=== PATIENT | female | born 1990 | race Caucasian/White ===

== ENCOUNTER 2018-12-25 16:44 | Emergency (ER) | payer BC ==
[2018-12-25 17:41] LABS: #Basophils 0.1 thou/uL (0.0-0.2); #Eosinphils 0.2 thou/uL (0.0-0.7); #Lymphocytes 1.9 thou/uL (1.20-3.40); #Monocytes 0.4 thou/uL (0.11-0.59); #Neutrophils 3.6 thou/uL (1.40-6.50); %Basophils 1.1 % (0.0-1.0); %Eosinophils 2.5 % (0.0-10.0); %Lymphocytes 30.2 % (21.0-51.0); %Monocytes 7.2 % (0.0-10.0); Hemoglobin 13.8 g/dL (12.0-16.0); Mean Corpuscular HGB CONC 35.3 g/dL (32.0-36.0); Mean Corpuscular Hemoglobin 30.3 pg (27.0-31.0); Mean Corpuscular Volume 85.9 fL (78.0-98.0); Mean Platelet Volume 8.3 fL (7.4-10.4); Platelet Count 171 thou/uL (130-400); RBC Distribution Width 11.7 % (11.5-14.5); Red Blood Cell (RBC) Count 4.57 mill/uL (4.20-5.40); White Blood Cell (WBC) Count 6.2 thou/uL (4.8-10.8)
[2018-12-25 18:49] LABS: Bilirubin Negative (Negative); Blood, Urine Negative (Negative); Clarity Clear (Clear); Glucose, Urine (Dipstick) Normal (Negative); Leukocyte Negative Leu/uL (Negative); Nitrite Negative (Negative); Protein, Urine (Dipstick) Negative (Neg-Trace); Urobilinogen Normal mg/dL (Less than 2)
--- NOTE | 2018-12-25 19:51 | ULT ---
OB ULTRASOUND: History: Vaginal bleeding. FINDINGS: This shows an irregularly shaped intrauterine gestational sac and a pole. The crown to rump dinora gth measurements are 5.8 cm corresponding to 12 weeks 2 days. No motion or heart activity is se en. The right and left adnexa are normal in size. DOPPLER EVALUATION WITH SPECTRAL ANALYSIS: Normal flow is shown to the right ovary. Left ovary flow cannot be determined. This is probably just related to its position. IMPRESSION: Findings compatible with demise. POS: [facility]
== END 2018-12-25 19:35 | disposition home or self-care (01) ==
LOC: ERS 16:44
DX: O03.4 Incomplete spontaneous abortion without complication (principal)
CPT/HCPCS: 36415; 76856; 81003; 84702; 85025; 86900; 86901

== ENCOUNTER 2018-12-26 06:05 | Inpatient (IN) | payer BC ==
[2018-12-26] MEDS ORDERED: Misoprostol 200 MCG TAB ONE ×2 (06:43→07:16)
[2018-12-26] MEDS ORDERED: hydrALAZINE 20 MG/ML VIAL SLOW IVP PRN (06:52)
--- NOTE | 2018-12-26 06:52 | PDOC.EVN ---
Event Note - Event Note Event Note: In Room at 0645 (now) OBGYN [facility] Patient of Dr Marks patient S/P passing 16 week AB at home, placenta in situ Patient passed fetus at about 0430 IV being placed now Initial exam with no active bleeding, cant tell if placenta insitu yet Awaiting speculum...will get sono
[2018-12-26] MEDS ORDERED: Lactated Ringer's 1,000 ML IV SCH (07:00)
--- NOTE | 2018-12-26 07:02 | PDOC.EVN ---
Event Note - Event Note Event Note: On exam at 654 with speculum: Placenta seen at external CX OS...I teased it out with rings...will order sono to check Cavity No further VB Check HH
--- NOTE | 2018-12-26 07:04 | PDOC.LDHP ---
Labor and Delivery H&P Chief complaint: other (Pased 16 week AB at home) HPI: Patent of Dr Marks (notified). DX with 16 week AB in ED last PM and arrived in L& D with placenta insitu Dating criteria: last menstrual period Past Medical History: none Current medications: pre- vitamins Allergies/Adverse Reactions: Allergies Allergy/AdvReac Type Severity Reaction Status Date / Time No Known Allergies Allergy Verified 11/21/14 08:03 Social history: none - Physical Exam Vital signs reviewed and normal: yes (pulse 90s 110/70) General: NAD Heart: RRR Lungs: CTAB Extremeties: no edema - Assessment s/p 16 week of AB..placenta now out T&C sono to check ut IVF
--- NOTE | 2018-12-26 07:09 | PDOC.EVN ---
Event Note - Event Note Event Note: Present for sono being done now...cavity looks ok Will order cytotec to help expell clots Rice aware
[2018-12-26] MEDS ORDERED: Misoprostol 100 MCG TAB VAG SCH ×2 (07:15→07:30)
[2018-12-26 07:21] LABS: #Eosinphils 0.2 thou/uL (0.0-0.7); #Lymphocytes 1.8 thou/uL (1.20-3.40); #Monocytes 0.5 thou/uL (0.11-0.59); #Neutrophils 7.2 thou/uL (1.40-6.50); %Basophils 0.2 % (0.0-1.0); %Eosinophils 1.8 % (0.0-10.0); %Lymphocytes 18.7 % (21.0-51.0); %Monocytes 5.2 % (0.0-10.0); %Neutrophils 74.2 % (42.0-75.0); Hemoglobin 13.8 g/dL (12.0-16.0); Mean Corpuscular Hemoglobin 30.4 pg (27.0-31.0); Mean Corpuscular Volume 86.8 fL (78.0-98.0); Mean Platelet Volume 8.3 fL (7.4-10.4); Platelet Count 172 thou/uL (130-400); RBC Distribution Width 11.8 % (11.5-14.5); Red Blood Cell (RBC) Count 4.54 mill/uL (4.20-5.40); White Blood Cell (WBC) Count 9.7 thou/uL (4.8-10.8)
--- NOTE | 2018-12-26 09:52 | ULT ---
LIMITED PELVIC ULTRASOUND: COMPARISON: None. HISTORY: Recent delivery. Evaluate for retained products of conception. TECHNIQUE: Multiplanar, alba scale, and color Doppler images were obtained in a limited transabdominal pelvic ul trasound. FINDINGS: The uterus is enlarged. The endometrial stripe is thickened measuring 2.2 cm. No suspicious areas o f retained products of conception are seen within the uterus. IMPRESSION: No evidence of retained products of conception. POS: [facility]
--- NOTE | 2018-12-26 12:34 | PDOC.EVN ---
Event Note - Event Note Event Note: Returned to bedside to reassess the patient and her bleeding. She is feeling well. Hgb 13. Bleeding much less now after cytotec. A few clots when she first went to the bathroom but now doing better. Asking to go home. Will send placenta for genetic testing (Anora). This will be submitted thru my office. Discussed discharge instructions and advised to call if bleeding increases. F/U in 2 weeks with me.
== END 2018-12-26 12:40 | disposition home or self-care (01) | DRG 779 ==
LOC: L&D 06:05
PROVIDERS: ADMIT Family Medicine; ATTEND Family Medicine
PROC: 10D17Z9 Manual Extraction of Products of Conception, Retained, Via Natural or Artificial Opening (ICD-10-PCS; principal; 2018-12-26)
DX: O03.4 Incomplete spontaneous abortion without complication (principal)
CPT/HCPCS: 36415; 76856; 76857; 81003; 84702; 85025; 86850; 86900; 86901

== ENCOUNTER 2019-08-06 12:47 | Inpatient (IN) | payer BC ==
[2019-08-06 13:32] VITALS: BMI 21.4
[2019-08-06] MEDS ORDERED: Acetaminophen 500 MG TAB PO PRN (14:05)
[2019-08-06] MEDS ORDERED: Ondansetron PF 4 MG/2 ML Vial IVP PRN (14:05)
[2019-08-06] MEDS ORDERED: hydrALAZINE 20 MG/ML VIAL SLOW IVP PRN (14:05)
[2019-08-06] MEDS ORDERED: Promethazine HCl 25 MG/ML VIAL IM PRN (14:05)
[2019-08-06] MEDS ORDERED: Misoprostol 100 MCG TAB VAG ONE (14:07)
[2019-08-06 15:11] LABS: Hemoglobin 13.9 g/dL (12.0-16.0); Mean Corpuscular HGB CONC 33.2 g/dL (32.0-36.0); Mean Corpuscular Hemoglobin 27.7 pg (27.0-31.0); Mean Corpuscular Volume 83.4 fL (78.0-98.0); Mean Platelet Volume 8.9 fL (7.4-10.4); Platelet Count 192 thou/uL (130-400); RBC Distribution Width 12.5 % (11.5-14.5); Red Blood Cell (RBC) Count 5.01 mill/uL (4.20-5.40); White Blood Cell (WBC) Count 8.9 thou/uL (4.8-10.8)
[2019-08-06] MEDS: Misoprostol 200 MCG TAB VAG SCH ×3 (15:14→21:13)
[2019-08-06 16:01] LABS: HBSAg Index 0.34 S/CO (0-0.99); Hep B Surf Ag Non-Reactive S/CO (NonReactive)
[2019-08-06 16:02] LABS: Syphilis Antibody Nonreactive (Nonreactive); Syphilis Antibody Index 0.03 S/CO (<1.00 Non-Reactive)
[2019-08-06] MEDS: Butorphanol Tartrate 1 MG/ML VIAL SLOW IVP PRN ×2 (19:22→22:52)
[2019-08-06] MEDS: Lactated Ringer's 1,000 ML IV SCH ×2 (19:32→22:25)
--- NOTE | 2019-08-06 19:41 | PDOC.OPDEL ---
OB Operative/Delivery Note Delivery Dr/Surgeon: Kendrick Pre-Delivery Diagnosis: medically indicated induction (DIU at 12 weeks, diagnosed at 16 weeks, cytotec induction of labor) Procedure/Post Delivery Dx: spontaneous vaginal delivery (Rapid spontaneous delivery of the baby. Awaiting placenta at this time. When it delivers I will add an event note detailing that part of the delivery. Right now minimal bleeding. Cord is coming out of the vagina. Clamp on the cord.) Weeks gestation: 16 Anesthesia: none - Additional Findings/Plan Placenta delivered: manual removal (About 4 hours after delivery of the baby the placenta was coming through the cervical os with a few gushes of blood. Dr. Roque was called to [facility] to assist and the placenta was removed with the use of ring forceps and traction. This took several minutes during which time bleeding was minimal. Placenta appeared intact. No fragments visible on speculum exam or palpable within the cervix.) Repaired Obstetrical Laceration: none Estimated blood loss: 1050 ml Post delivery plan: routine recovery (Monitor bleeding for the next 4 hours. If minimal then can D/C home at patient request. If bleeding picks up again the possiblity of D&C was discussed.)
[2019-08-06] MEDS ORDERED: Misoprostol 200 MCG TAB ONE ×2 (21:12→23:55)
--- NOTE | 2019-08-06 23:00 | PDOC.EVN ---
Event Note - Event Note Event Note: At bedside because patient felt a gush of blood, on exam there was moderate clot in the vagina, this passed with a gush of blood and some tissue that resembled placenta. QBL total at this time including this gush was 750ml. Patient felt lightheaded and faint. BP 70's/40's and HR 100. Bolus 1 liter of normal saline with immediate improvement in BP and lightheadedness. On exam there is still some placenta palpable in the cervical os with the cord still attached. Bleeding stopped after the above gush and patient stabilized. Attempted to remove the placenta from the cervix with ring forceps but fair resistance felt so stopped. Will wait a little longer to see if the remainder of placenta delivers. Bleeding at this time is scant. BP is stable now at 100's/ 50's which is patient baseline. Discussed the possible need for D&C if the placenta fails to deliver and there is more bleeding. Patient requested a dose of stadol which was given.
[2019-08-06] MEDS ORDERED: Butorphanol Tartrate 1 MG/ML VIAL ONE (23:55)
--- NOTE | 2019-08-07 00:07 | PDOC.BPN ---
- Brief Progress Note Called to room for evaluation of bleeding. Patient delivered fetus but placenta remained. Patient had passed clots and had several gushes of blood with some mild hypotension that was relieved with fluid bolus. The placental tissue was visible through the os and grabbed with ring forceps. Gentle traction was maintained until the placenta finally freed and appeared intact. Minimal bleeding was noted at that time. Dr. Marks placed 800mcg of cytotec. We will continue to monitor bleeding and D&C was discussed, should the patient start bleeding heavily again.
[2019-08-07] MEDS: Misoprostol 200 MCG TAB VAG SCH ×2 (01:58→04:18)
[2019-08-07 05:44] LABS: Hemoglobin 10.4 g/dL (12.0-16.0); Mean Corpuscular HGB CONC 33.3 g/dL (32.0-36.0); Mean Corpuscular Volume 84.1 fL (78.0-98.0); Mean Platelet Volume 9.2 fL (7.4-10.4); Platelet Count 165 thou/uL (130-400); RBC Distribution Width 12.5 % (11.5-14.5); White Blood Cell (WBC) Count 9.5 thou/uL (4.8-10.8)
== END 2019-08-07 06:18 | disposition home or self-care (01) | DRG 770 ==
LOC: L&D 12:47
PROVIDERS: ADMIT Family Medicine; ATTEND Family Medicine
PROC: 3E033VJ Introduction of Other Hormone into Peripheral Vein, Percutaneous Approach (ICD-10-PCS; principal; 2019-08-06)
PROC: 10D17ZZ Extraction of Products of Conception, Retained, Via Natural or Artificial Opening (ICD-10-PCS; 2019-08-07)
DX: O02.1 Missed abortion (principal); O04.6 Delayed or excessive hemorrhage following (induced) termination of pregnancy; I95.9 Hypotension, unspecified
CPT/HCPCS: 36415; 85027; 86644; 86696; 86698; 86762; 86777; 86780; 86850; 86900; 86901; 87340; J0595